=== PATIENT | female | born 1955 | race Caucasian/White ===

== ENCOUNTER → 2017-01-24 | Outpatient (CLI) | payer OTHER ==
[2017-01-24] VITALS (12 sets, daily range): BP systolic 142–181; BP diastolic 70–94; PULSE 59–72
[~2017-01-24] VITALS: Ht 170.2 cm; Wt 92.6 kg
[~2017-01-24] MED LIST: ASPIRIN 81M81 MG/TA2 PO; LOPRESSOR 550 MG/TAB PO; MOTRIN 400400 MG/TAB PO
[2017-01-24 09:59] LABS: INR 1.1 (0.8-3.0); PROTHROMBIN TIME 11.9 SECONDS (9.7-12.8)
== END ==
LOC: COL.RAD 09:00
PROVIDERS: Physician Assistant
DX: K76.0 Fatty (change of) liver, not elsewhere classified (principal); R74.8 Abnormal levels of other serum enzymes; Z90.49 Acquired absence of other specified parts of digestive tract
CPT/HCPCS: 25581

== ENCOUNTER 2017-01-26 14:55 | Emergency (ER) | payer OTHER ==
[~2017-01-26] VITALS: Ht 170.2 cm; Wt 91.8 kg
[2017-01-26 15:01] VITALS: BP 181/75; TEMP 98.2
[2017-01-26 15:40] LABS: BASO # 0.1 (0.0-0.2); BASO % 0.7 % (0.0-2.0); EOS # 0.1 (0.0-0.7); EOS % 1.4 % (0-4.0); GRAN # 6.8 (1.4-6.5); GRAN % 72.1 % (42.2-75.2); HEMATOCRIT 44.1 % (37.0-47.0); HEMOGLOBIN 14.6 g/dl (12.5-16.0); LYMPH # 1.8 (1.2-3.4); LYMPH % 18.6 % (20.0-51.0); MEAN CELL VOLUME 85 fl (80.0-100.0); MEAN CORPUSCULAR HEMOGLOBIN 28 pg (27.0-31.0); MEAN CORPUSCULAR HGB CONC 33 g/dl (33.0-37.0); MEAN PLATELET VOLUME 10.6 fl (7.4-10.4); MONO # 0.6 (0.1-0.6); MONO % 6.8 % (1.7-9.3); PLATELET COUNT 245 K/mm3 (130-400); RED BLOOD COUNT 5.19 M/mm3 (4.10-5.30); REDCELL DISTRIBUTION WIDTH-CV 13.4 % (11.5-14.5); WHITE BLOOD COUNT 9.4 K/mm3 (4.8-10.8)
[2017-01-26 15:56] LABS: ADJUSTED CALCIUM 9.2 mg/dL (8.4-10.2); ALBUMIN 4.3 gm/dL (3.5-5.0); BILIRUBIN,TOTAL 1.1 mg/dL (0.0-1.0); CALCIUM 9.4 mg/dL (8.4-10.2); CREATININE, serum 0.78 mg/dL (0.52-1.25); POTASSIUM 4.3 mmol/L (3.4-5.0)
[2017-01-26 16:42] VITALS: PULSE 86
== END 2017-01-26 16:43 | disposition home or self-care (01) ==
LOC: COL.ER 14:55
PROVIDERS: Family Medicine
DX: K91.870 Postprocedural hematoma of a digestive system organ or structure following a digestive system procedure (principal); I10 Essential (primary) hypertension
CPT/HCPCS: J7030

== ENCOUNTER 2023-07-19 07:46 | Inpatient (IN) | payer MEDICARE ==
[~2023-07-19] VITALS: Ht 170.2 cm; Wt 85.9 kg
[~2023-07-19 07:46] MED LIST changes: +CLARITIN 1010 MG/TAB PO; +COZAAR100 MG PO; +FARXIGA10 PO; +GLUCOPHAGE XR500 M1 PO; +GLUCOTROL XL10 MG PO; +HAIRSKINNAILS PO; +MICROZIDE12.5 MG PO; +ZEBETA10 MG PO
[2023-07-19] MEDS ORDERED: FLAGYL500 MG PO (08:05)
[2023-07-19] MEDS ORDERED: BIAXIN 500MG T500 MG PO (08:05)
[2023-07-19] MEDS ORDERED: FERROUS SU325 MG/TAB PO (08:06)
[2023-07-19] MEDS ORDERED: COZAAR 50MG50 MG/TAB PO (08:06)
[2023-07-19] MEDS ORDERED: NEURONTIN100 MG/CAP PO (08:07)
[2023-07-19] MEDS ORDERED: PEPTO BISM262 MG/15 PO (08:07)
[2023-07-19] MEDS ORDERED: PROTONIX 40MG T40 MG PO (08:08)
[2023-07-19] MEDS ORDERED: CARAFATE 1GM1 G PO (08:08)
[2023-07-19] MEDS ORDERED: BLUE-EMU LIDOC1 EACH TP (08:09)
[2023-07-19] MEDS ORDERED: PACERONE200 MG PO (08:17)
[2023-07-19] MEDS ORDERED: SPIRIVA RE2.5 MCG/Ac IH (08:41)
[2023-07-19] MEDS ORDERED: RT ADVAIR 228 DISKUS IH (08:43)
[2023-07-19] MEDS ORDERED: IPRATROPIUM BROM3 M1 IH (08:43)
[2023-07-19 11:45] VITALS: BP 129/51; PULSE 90; TEMP 98.2
--- NOTE | 2023-07-19 12:29 | NUR ---
New pt arrived to IPR unit via wheelchair from Surgical Floor. She is a/o x 4, pleasant. Denies pain or discomfort. Pt is s/p lap colectomy on 06/13 & s/p sigmoid resection on 06/29. Colostomy noted to RLQ & is CDI. Midline abd. incision noted to be covered by abd. pad & is also CDI. Dressing not removed at this time. Loop recorder placed on 07/14. Gauze dressing removed to reveal steri strips that are CDI - steri strips left in place per cardiology's instruction. All other skin is intact. Pt denies any valuables that need to be locked at this time. Pt has her cellphone at the bedside. OT in room for eval/shower. Orientation provided to room/unit. Pt denies other needs.
[2023-07-19 13:00] VITALS: BP_SYST 129
--- NOTE | 2023-07-19 13:05 | NUR ---
Pt resting supine in bed after showering w/ OT. PT at the bedside for eval.
[2023-07-19 17:07] VITALS: BP 119/66; PULSE 85; TEMP 98.3
[2023-07-19 17:38] VITALS: BP 119/66; PULSE 85; TEMP 98.3
[2023-07-19 17:47] VITALS: BP_SYST 119
--- NOTE | 2023-07-19 19:30 | NUR ---
RECEIVED CHANGE OF SHIFT REPORT FROM DAY SHIFT RN. PATIENT RESTING IN BED DURING REPORT, WATCHING TV. DENIES ANY NEEDS OR CONCERNS AT TIME OF REPORT. EXIT ALARM ON, CALL LIGHT IN REACH.
[2023-07-20 04:50] VITALS: BP 158/43; PULSE 80; TEMP 98.1
--- NOTE | 2023-07-20 05:00 | NUR ---
Patient reports did not sleep well during the night. Reports that she is concerned about the wellfare of one of her daughters, that she was informed, via phone call, that her daughter was in the ER at the hospital in [place] "that's where her shelter is at" from her coworkers daughter and that she would get a call back "but I didn't hear from anyone". Patient refused offer of speaking with roofer assistant for spiritual support at this time. C/O headache and BLE discomfort 7/10 level, see [facility] for BP reading taken and PRN med given.
[2023-07-20 07:00] VITALS: BP_SYST 158
--- NOTE | 2023-07-20 07:22 | NUR ---
CHANGE OF SHIFT REPORT GIVEN TO DAY SHIFT DANI. BOO
--- NOTE | 2023-07-20 08:50 | NUR ---
PT TAKEN DOWN TO THERAPY GYM BY OT.
--- NOTE | 2023-07-20 10:30 | NUR ---
PT DOWN TO THERAPY GYM
--- NOTE | 2023-07-20 16:19 | NUR ---
Collar Setter and SW Student met with Patient at bedside to conduct Care Managment Assessment and discuss discharge planning. Patient lives in [place], [place] and is established with Joann Soto for PCP. Patient reports 1 step to enter home. Patient states that there is no room in her bathroom for grab bars. Patient stats that she may need to rearrange her home to assist with ambulating in the home with a walker if needed. Patient reports to have reliable transportation when discharged. Patient states that she has strong familial supports at home and in the community.
[2023-07-20 17:15] VITALS: BP 150/63; PULSE 88; TEMP 99
[2023-07-20 19:00] VITALS: BP_SYST 150
--- NOTE | 2023-07-20 19:20 | NUR ---
REPORT RECIEVED FROM YURI HADDAD. PT RESTING IN BED WATCHING TV. PT DENIES PAIN OR DISCOMFORT. CALL LIGHT IN PLACE. ALL NEEDS MET AT THIS TIME.
--- NOTE | 2023-07-20 20:12 | NUR ---
SHIFT ASSESSMENT COMPLETE, SEE DOCUMENTATION. PT AMBULATED TO BATHROOM UTILIZING GAIT BELT AND WALKER, GAIT STEADY. NO C/O PAIN. PT REPORTS BEING VERY TIRED. CALL LIGHT IN PLACE. ALL NEEDS MET AT THIS TIME.
[2023-07-21 04:59] VITALS: BP 129/65; PULSE 80; TEMP 98.3
[2023-07-21 07:00] VITALS: BP_SYST 129
--- NOTE | 2023-07-21 11:23 | NUR ---
Has lack of transportation kept you from medical appts, meetings, work, or from getting things needed for daily living? NO How often do you feel lonely or isolated from those around you? OFTEN Over the past 5 days, how much of the time has pain made it hard for you to sleep? FREQUENTLY Over the past 5 days, how often have you limited your participation in therapy due to pain? RARELY/NOT AT ALL Over the past 5 days, how often have you limited your day-to-day activities because of pain? RARELY/NOT AT ALL Have you had 2 or more falls in the past year or any fall with an injury? NO Did you have major surgery during the 100 days prior to admission? YES
--- NOTE | 2023-07-21 13:55 | NUR ---
PATINET WITH THERAPY
--- NOTE | 2023-07-21 15:43 | NUR ---
Farm Management Supervisor and SW student met with Patient to review progress towards treatment goals and review potential discharge services. Patient reports to be making progress towards treatment goals despite feeling fatigue after therapies. SW reviewed potential Home Health PT or OPPT when discharged. Patient presents with no concerns at this time.
[2023-07-21 17:28] VITALS: BP 103/50; PULSE 85; TEMP 98.6
[2023-07-21 19:11] VITALS: BP_SYST 103
--- NOTE | 2023-07-21 22:26 | NUR ---
PATIENT DECLINED ALL NIGHT MEDS DUE TO NAUSEA.PATIENT STATES SHE WILL TRY TO TAKE THEM LATER ON TONIGHT. UNDERSTOOD
--- NOTE | 2023-07-21 22:48 | NUR ---
SHIFT ASSESSMENT COMPLETE. VSS. A&OX4. PATIENT HAS BEEN FEELING NEUSEA SINCE MEDS GIVEN @ 1700 TODAY. PATIENT DECLINED NIGHTTIME MEDS AT THIS TIME BUT WILL TRY TO TAKE THEM A LITTLE. UNDERSTOOD. CONOSCOPY INTACT AND OUTPUT BROWN THICK LIQUID. INCISION SITE TO ABD DRESSING CHANGED @ 1630 TODAY HAD SOME YELLOW DRAINAGE. SITE CLEAN AND NEW DRESSING APPLIED CDI. PATIENT IS RESTING IN BED WATCHING TV. FALL PRECAUTIONS IN PLACE AND CALL LIGHT IN REACH.
[2023-07-22 06:33] VITALS: BP 125/56; PULSE 72; TEMP 99.1
[2023-07-22 07:00] VITALS: BP_SYST 125
--- NOTE | 2023-07-22 11:46 | NUR ---
PT ALERT AND ORIENTED. COMFORABLE IN BED W/O COMPLAINTS OF PAIN. VITAL SIGNS STABLE. NO INSULIN REQUIRED. MEDS ADMINISTERED PER EMAR. PICC FLUSHING WELL W/BLOOD RETURN. HEAD TO TOE ASSESSMENT COMPLETE. CALL LIGHT WITHIN REACH.
[2023-07-22 17:15] VITALS: BP 140/42; PULSE 80; TEMP 99.1
--- NOTE | 2023-07-22 18:08 | NUR ---
Pt having frequent coughing after attempting to take her evening medications. Pt reports that she feels like she can still taste the pill while coughing & reports foreign body sensation in her throat. Pt is able to swallow liquids, crackers, pudding w/o difficulty. Attempted to notify hospitalist, no answer. Will try to contact oncoming night hospitalist.
--- NOTE | 2023-07-22 18:18 | NUR ---
Hospitalist notified of pt's frequent coughing w/ report of foreign body sensation in her throat. Hospitalist will come to see pt for eval.
--- NOTE | 2023-07-22 18:37 | NUR ---
HOSPITALIST HERE TO ASSESS PT. NPO NOW.
--- NOTE | 2023-07-22 21:47 | NUR ---
Patient assessed at this time, see shift assessment, still coughing at times, NPO maintained as ordered, IV fluid started, with PICC to right upper arm infusing well, both lumens flushes well with good blood return, dressing to abdomen is CDI but patient requested to have it change despite dayshift nurse already change it, applied wet to dry dressing using gauze, ABD and hypafix, denies further needs, call light and personal items within reach, will continue to monitor.
--- NOTE | 2023-07-23 04:25 | NUR ---
Patient coughing at this time, reports she can still taste the pill that she took last night, offered mouth swabs at this time to moisten her mouth and she's agreeable with it. NPO maintained, will continue to monitor. Toileting offered and she states she doesn't need to go at this time.
[2023-07-23 05:58] VITALS: BP 123/43; PULSE 66; TEMP 97.9
--- NOTE | 2023-07-23 07:05 | NUR ---
LEAD HOUSEKEEPER NURSE REPORTS PT HAS NEW ORDERS. PT NPO AND ON FLUIDS. DID WELL OVERNIGHT. NIGHT NURSE ALSO EXPRESSED PT NOT READY TO LEARN HOW TO CARE FOR HER COLOSTOMY.
[2023-07-23 07:07] VITALS: BP_SYST 123
--- NOTE | 2023-07-23 11:48 | NUR ---
Around 10 am I notified hospitalist abt pt request to attempt to drink liquids and resume eating. Verbal order recieved to do a bedside swallow attempt and if pt was able to tolerate, ok to d/c fluids and resume dietas ordered. Bedside swallow initiated with 2nd RN, water and crackers were given to pt, pt was able to chew and swallow ok. Fluids D/C and Low fiber diet resumed.
[2023-07-23 18:00] VITALS: BP 123/57; PULSE 80; TEMP 98.3
--- NOTE | 2023-07-23 19:01 | NUR ---
RECEIVED CHANGE OF SHIFT REPORT FROM DAY SHIFT RN.
--- NOTE | 2023-07-23 20:23 | NUR ---
C/O OF NAUSEA AND ACID REFLUX, SEE MAR FOR ZOFRAN GIVEN. PATIENT BACK IN BED FROM CHAIR. DENIES ANY OTHER NEEDS AT THIS TIME.
[2023-07-24 05:10] VITALS: BP 138/47; PULSE 76; TEMP 98.2
--- NOTE | 2023-07-24 05:32 | NUR ---
REPORTS SLEPT BETTER LAST NIGHT COMPARED TO OTHER NIGHTS, DENIES ANY NAUSEA/INDIGESTION/ABD PAIN AT THIS TIME. EXIT ALARM ON WHILE RESTING IN BED, CALL LIGHT IN REACH.
--- NOTE | 2023-07-24 06:45 | NUR ---
CHANGE OF SHIFT REPORT GIVEN TO DAY SHIFT RNNATASHA.
[2023-07-24 07:00] VITALS: BP_SYST 138
--- NOTE | 2023-07-24 09:38 | NUR ---
PT OUT FOR THEAPY AFTER BREAKFAST. PT REPORTS THAT BIAXIN UPSETS STOMACH, INFORMED DR. ESTRADA AND HE WILL FIND A POSSIBLE ALTERNATIVE. PT EATING AND DRINKING. TOOK MEDS CRUSHED WITH PUDDING. PT MANAGES COLOSTOMY.
--- NOTE | 2023-07-24 12:54 | NUR ---
Admission QIM scores were reviewed by the team. Code of 88 chosen for toileting hygiene was determined by team discussion to be the most usual performance for this patient during the discharge assessment period. Code of 88 chosen for shower/bathe self was determined by team discussion to be the most usual performance before interventions for this patient during the assessment period. Code of 5 chosen for upper body dressing was determined by team discussion to be the most usual performance before interventions for this patient during the assessment period. Code of 88 chosen for lower body dressing was determined by team discussion to be the most usual performance before interventions for this patient during the assessment period. Code of 4 chosen for sit to lying was determined by team discussion to be the most usual performance before interventions for this patient during the assessment period. Code of 4 chosen for lying to sitting side of bed was determined by team discussion to be the most usual performance before interventions for this patient during the assessment period. Code of 3 chosen for sit to stand was determined by team discussion to be the most usual performance for this patient during the discharge assessment period. Code of 3 chosen for chair/bed to chair transfer was determined by team discussion to be the most usual performance before interventions for this patient during the assessment period. Code of 3 chosen for walking 10 feet was determined by team discussion to be the most usual performance for this patient during the discharge assessment period. Code of 3 chosen for walking 50 feet w/ 2 turns was determined by team discussion to be the most usual performance before interventions for this patient during the discharge assessment period. Code of 88 chosen for walking 150 feet was determined by team discussion to be the most usual performance before interventions for this patient during the assessment period.--Malinda Balderas,
--- NOTE | 2023-07-24 14:45 | NUR ---
DRESSING CHANGE COMPLETED ORDERED. PT TOLERATED WELL.
--- NOTE | 2023-07-24 15:58 | NUR ---
Night Guard met with patient to check in from weekend. Patient stated she aspirated over the weekend and that it was pretty scary, however she is feeling better. Patient denied any other questions or concerns at this time.
[2023-07-24 17:53] VITALS: BP 143/51; PULSE 75; TEMP 98.5
--- NOTE | 2023-07-24 19:03 | NUR ---
RECEIVED CHANGE OF SHIFT REPORT FROM DAY SHIFT RN.
[2023-07-25 05:02] VITALS: BP 138/49; PULSE 72; TEMP 97.7
--- NOTE | 2023-07-25 07:05 | NUR ---
CHANGE OF SHIFT REPORT GIVEN TO DAY SHIFT RNGE. PATIENT C/O OF ZOHREH LEG PAIN, REFUSES OFFER OF TYLENOL STATING SHE DOES NOT WANT TO SWALLOW ANYMORE CRUSHED PILLS. PATIENT DID AGREE TO TAKE TYLENOL IF IN LIQUID FORM. EXIT ALARM ON WITH CALL LIGHT IN REACH WHILE RESTING IN BED WATCHING TV THIS MORNING.
[2023-07-25 07:33] VITALS: BP_SYST 138
--- NOTE | 2023-07-25 08:20 | NUR ---
pt sitting in recliner finishing breakfast. meds given and assessment complete. lidocaine patch applied to right lower back. midline abdominal incision is cdi. loop recorder incision intact. PICC to mable flushes well w good blood return. pt expressing some doubtful feelings this morning, spoke to patient and is now in better spirits. pt denies needs at this time. call light in reach.
[2023-07-25 17:30] VITALS: BP 165/56; PULSE 88; TEMP 98.3
--- NOTE | 2023-07-25 19:00 | NUR ---
RECEIVED CHANGE OF SHIFT REPORT FROM DAY SHIFT RN. PATIENT UP IN CHAIR DURING REPORT, DENIES ANY NEEDS. EXIT ALARM ON WITH CALL LIGHT IN REACH.
[2023-07-26 05:01] VITALS: BP 154/55; PULSE 86; TEMP 98.2
--- NOTE | 2023-07-26 07:14 | NUR ---
CHANGE OF SHIFT REPORT GIVEN TO DAY SHIFT RNs, YENNY.
--- NOTE | 2023-07-26 07:39 | NUR ---
PER TILE FITTER REPORT PT NOW ON LIQUID TYLENOL R/T NOT LIKING THE TASTE OF WHOLE CRUSHED TYLENOL.
[2023-07-26 07:40] VITALS: BP_SYST 154
--- NOTE | 2023-07-26 09:21 | NUR ---
Midline abd. incision dressing changed per order. Colostomy bag changed per pt's request. OT at the bedside to shower pt. Other needs denied.
--- NOTE | 2023-07-26 13:17 | NUR ---
PATIENT ALERT AND ORIENTED. VITAL SIGNS STABLE. SITTING IN THE BED. PT HAS BILATERAL EDEMA WORSE ON THE LEFT LOWER EXT. HOSPITALIST AWARE. WILL KEEP MONITORING. PT IS ACCEPTING OF USING THE SCDS TOLERABLE. HEAD TO TOE ASSESSMENT COMPLETE. PT IS NOW TAKING PILLS WHOLE. LARGE ONES SPLIT IN HALF IN PUDDING AND SMALL ONES IN PUDDING. BED ALARM SET. CALL LIGHT WITHIN REACH.
--- NOTE | 2023-07-26 17:11 | NUR ---
machine worker met with IPR team to discuss patient's progress and potential discharge. Patient may be ready for discharge on 08/02/23 with either home health or outpatient PT. PT is recommending a walker. machine worker met with patient to discuss the IPR team meeting notes. Patient expressed she can obtain a walker easily and would like to utilize outpatient PT through the [facility]. machine worker provided a copy of the notes. machine worker discussed setting up a family meeting, patient would like Myrtle P# [phone] and Satish P# [phone] to be involved. machine worker will contact them to schedule family meeting prior to discharge. Discharge plan: Home with Outpatient PT
[2023-07-26 18:05] VITALS: BP 162/53; PULSE 85; TEMP 98.7
[2023-07-26 19:00] VITALS: BP_SYST 162
--- NOTE | 2023-07-26 20:16 | NUR ---
PATIENT REFUSES BREATHING TREATMENTS
--- NOTE | 2023-07-27 03:55 | NUR ---
UPON SHIFT ASSESSMENT NANDO WAS UP IN BED WATCHING TV. HER SURGICAL INSCISION SITE LOOKED CLEAND AND DRY. COLOSTOMY STOMA WAS BRIGHT RED AND DRAINING APPROPRIATELY. STOOL WITHIN COLOSTOMY BAG WAS BROWN AND WATERY WITH NO INDICATION OF GI COMPLICATIONS. HER VSS ARE WNL, HOWEVER, HER PURPLE LUMEN ON HER PICC LINE WOULD NOT FLUSH, RED LINE FLUSHED WITH NO ISSUES. CALL LIGHT WITHIN REACH, BED ALARM ON.
[2023-07-27 05:06] VITALS: BP 138/55; PULSE 73; TEMP 97.6
--- NOTE | 2023-07-27 06:53 | NUR ---
UPON SHIFT CHANGE NANDO WAS UP IN BED AND HER BILATERAL LOWER EXTREMITY EDEMA HAS SEEM TO RESOLVE FOR THE TIME BEING. SHE DID MENTION THAT SHE NOTICED A FEW UNDIGESTED PILLS IN HER COLOSTOMY BAG. HER ABDOMINAL INSCISION STILL REMAINS DRY AND NON EDEMANOUS. HER VSS ARE CURRENTLY WNL, CALL LIGHT IS WITHIN REACH.
[2023-07-27 07:00] VITALS: BP_SYST 138
--- NOTE | 2023-07-27 08:53 | NUR ---
SBA provided as pt stood from recliner to ambulate to the bathroom. Pt independently performed colostomy care after supplies were gathered for the pt. Per warehouse supervisor 3rd shift report, purple port on dbl lumen PICC line was difficult to flush. Red & purple ports both flushed easily w/ noted blood return from each port. Pt denies pain/discomfort. Denies other needs. Pt supervised as she swallowed her a.m. medications. Larger pills were cut in 1/2. No episodes of choking/coughing noted while she was taking her medications. Pt has her call light in reach. Chair alarm is on.
--- NOTE | 2023-07-27 10:50 | NUR ---
PT ALERT AND ORIENTED. VITAL SIGNS STABLE. HEAD TO TOE ASSSESSMENT COMPLETE. ASSISTED UP TO RESTROOM STANDBY ASSIST WITH FWW. PT EMPTIED HER OWN COLOSTOMY BAG THE LAST FEW DAYS. NO PAIN EXPRESSED NO C/O NAUSEA.
--- NOTE | 2023-07-27 14:55 | NUR ---
Data Management Associate faxed referral to [facility], then left a message for the therapy department. SW will follow up to schedule outpatient PT.
--- NOTE | 2023-07-27 15:18 | NUR ---
sheet metal worker contacted patient's family, Myrtle Meadows# [phone] and Satish P# [phone] to schedule family meeting on Monday. Patient's family chose 1 pm on Monday and both family members will be in person. sheet metal worker notified Malinda Balderas, Inpatient Presser Hand, of the appointment time and date. Discharge Plan: Home with Outpatient PT
[2023-07-27 18:00] VITALS: BP 150/57; PULSE 79; TEMP 98.8
[2023-07-27 18:30] VITALS: BP_SYST 150
--- NOTE | 2023-07-27 20:00 | NUR ---
PT SITTING UP IN RECLINER. SBA WITH WALKER TO BR. VOIDING WITHOUT DIFFICULTY. PT EMPTIES COLOSTOMY PER SELF. HAD MED THICK BROWN STOOL NOTED. ALSO NOTED WAS UNDIGESTED IRON PILL IN STOOL. PT AMB TO BED. ABLE TO LIFT LEGS INTO BED PER SELF. CALL LIGHT IN REACH. BED ALARM SET. NO NEEDS AT THIS TIME.
--- NOTE | 2023-07-28 04:56 | NUR ---
SBA WITH WALKER TO BR. VOIDED. PT EMPTIED OUT COLOSTOMY POUCH AND FOUND X 2 MORE UNDIGESTED PILLS.
[2023-07-28 05:28] LABS: BASO % 0.9 % (0.0-2.0); EOS # 0.2 K/mm3 (0.0-0.7); EOS % 7.8 % (0.0-4.0); GRAN # 1.1 K/mm3 (1.4-6.5); GRAN % 48.9 % (42.2-75.2); LYMPH # 0.8 K/mm3 (1.2-3.4); LYMPH % 32.5 % (20.0-51.0); MEAN CELL VOLUME 92 fl (80.0-100.0); MEAN CORPUSCULAR HGB CONC 32 g/dl (33.0-37.0); MEAN PLATELET VOLUME 10.9 fl (7.4-10.4); MONO # 0.2 K/mm3 (0.1-0.6); MONO % 9.5 % (1.7-9.3); PLATELET COUNT 142 K/mm3 (130-400); RED BLOOD COUNT 2.69 M/mm3 (4.10-5.30)
[2023-07-28 05:29] LABS: HEMATOCRIT 24.7 % (37.0-47.0); HEMOGLOBIN 7.9 g/dl (12.5-16.0); MEAN CORPUSCULAR HEMOGLOBIN 29 pg (27-31)
[2023-07-28 05:34] LABS: CALCIUM 8.4 mg/dL (8.4-10.2); CREATININE, serum 0.77 mg/dL (0.57-1.11); POTASSIUM 3.5 mmol/L (3.5-4.5)
[2023-07-28 05:49] VITALS: BP 149/50; PULSE 79; TEMP 97.7
[2023-07-28 07:11] VITALS: BP_SYST 149
--- NOTE | 2023-07-28 09:20 | NUR ---
PT INDEPENDENT IN ROOM. EATING AND DRINKING NO N/V. PT DENIES PAIN. AM MEDS GIVEN ORDERED. IV FLAGYL PER ORDERS. PT TO THERAPY AT THIS TIME. DRESSINGS TO ABDOMEN CDI.
--- NOTE | 2023-07-28 14:54 | NUR ---
3Rd Mate scheduled PT appointment for patient on 08/08/23 at 0915. SW met with patient to check in. Patient stated therapy is going well and she is feeling tired. Patient requested assistance with Handicap Placard application as she feels she will need it temporarily. SW to have Rehab Physician sign it next week.
--- NOTE | 2023-07-28 16:01 | NUR ---
DRESSING CHANGE COMPLETE AFTER SHOWER TODAY. WET TO DRY AT DISTAL END OF SURGICAL MIDLINE WOUND. PT TOLERATED WELL.
[2023-07-28 17:03] VITALS: BP 163/53; PULSE 83; TEMP 98.4
[2023-07-28 21:00] VITALS: BP_SYST 162
--- NOTE | 2023-07-28 21:00 | NUR ---
PT WAS IN RECLINER. DAUGHTER VISITING. AMB IN IN HERRING WITH WALKER. STEADY GAIT. PT RELATED PT TOLD HER SHE COULD WALK TO COURT YARD WITH FAMILY. NO ORDER FOUND. PT NOT HAPPY. PT ABLE TO EMPTY COLOSTOMY BAG HERSELF. THICK BROWN STOOL AND FLATUS NOTED. PT TO BED. TOOK MEDS WHOLE WITH PUDDING. TOOK TYLENOL 650MG LIQ FOR GENERAL DISCOMFORT. FLAGYL STARTED PER PICC LINE RT UPPER ARM. RED PORT SL SLUGGISH. PURPLE FLUSHED WELL. CALL LIGHT IN REACH. BED ALARM SET.
[2023-07-29 04:49] VITALS: BP 171/62; PULSE 84; TEMP 99.2
[2023-07-29 07:04] VITALS: TEMP 98
[2023-07-29 07:50] VITALS: BP_SYST 171
--- NOTE | 2023-07-29 07:50 | NUR ---
PT UP IN CHAIR UPON ENTERING. PT DENIES PAIN BUT REPORTS GENERALIZED DISCOMFORT. MORNING MEDS GIVEN WITH PUDDING AND SWALLOWED WITHOUT DIFFICULTY, ANTIBIOTIC RUNNING PER ORDER. BOTH PURPLE AND RED PICC PORT FLUSH WELL WITH BLOOD RETURN. COLOSTOMY TO ABDOMEN AND DRESSING ACROSS LOWER ABDOMEN NOTED THAT IS CLEAN DRY AND INTACT. PT DENIES NEEDS AT THIS TIME. CALL LIGHT IN REACH.
--- NOTE | 2023-07-29 09:00 | NUR ---
PT AMBULATED TO BATHROOM WITH WALKER AND GAITBELT, GAIT STEADY. PT MANAGING OWN COLOSTOMY AND HAD A MEDIUM SOFT BOWEL MOVEMENT. PT TRANSFERRED TO BED AND DENIES NEEDS AT THIS TIME.
--- NOTE | 2023-07-29 12:18 | NUR ---
PT IN PHYSICAL THERAPY THIS AM AND BACK TO ROOM, IN BED UPON ENTERING. PT GIVEN MEDS IN PUDDING AND TRANSFERRED TO CHAIR FOR MEALS, GAIT STEADY WITH WALKER AND GAIT BELT. PT DENIES PAIN OR NEEDS AT THIS TIME. CHAIR ALARM ON AND CALL LIGHT IN REACH
--- NOTE | 2023-07-29 17:40 | NUR ---
PT AMBULATED TO CHAIR WITH WALKER AND GAIT BELT, CHAIR ALARM ON AND CALL LIGHT IN REACH. PREVIOUS LOWER ABDOMEN DRESSING REMOVED, NO DRAINAGE NOTED. QUARTER SIZED OPEN WOUND NOTED BENEATH UMBILICUS. WOUND PACKED WITH WET GAUZE, COVERED WITH ABDOMINAL PAD AND TAPED IN PLACE. PT DENIES NEEDS AT THIS TIME.
[2023-07-29 17:44] VITALS: BP 156/62; PULSE 85; TEMP 97.8
--- NOTE | 2023-07-29 18:45 | NUR ---
REPORT GIVEN TO NIGHT NURSE
[2023-07-29 18:49] VITALS: BP_SYST 156
--- NOTE | 2023-07-29 21:00 | NUR ---
PT RESITNG IN BED. PT ABLE TO GET UP TO BR WITH WALKER W/ SBA. TAKES CARE OF OWN COLOSTOMY. DENIES PAIN AT THIS TIME. ACCUCHECK 133. NO SSI. CALL LIGHT IN REACH. BED ALARM. REFUSES SCD'S.
[2023-07-30 06:02] VITALS: BP 144/55; PULSE 80; TEMP 98.4
--- NOTE | 2023-07-30 06:45 | NUR ---
shift report received from BOO Weeks
[2023-07-30 07:03] VITALS: BP_SYST 144
--- NOTE | 2023-07-30 07:40 | NUR ---
up in chair and has had breakfast, full assessment completed, see interventions for further info, denies needs at this time
--- NOTE | 2023-07-30 09:30 | NUR ---
back in bed and appears to be dozing,
--- NOTE | 2023-07-30 11:47 | NUR ---
resting in bed without c/os
--- NOTE | 2023-07-30 14:30 | NUR ---
daughter here, abdominal wound dressing changed, packed with wet gauze and covered by dry 4x4s and then airstrip, tolerated well
--- NOTE | 2023-07-30 17:44 | NUR ---
assisted up to chair for supper
[2023-07-30 17:49] VITALS: BP 171/55; PULSE 87; TEMP 98.4
[2023-07-30 19:00] VITALS: BP_SYST 171
--- NOTE | 2023-07-30 19:01 | NUR ---
shift report given to BOO Parker
--- NOTE | 2023-07-30 21:30 | NUR ---
PT IN BED, IS ALERT AND ORIENTED X4. HAS RT ABD COLOSTOMY WITH SOFT BROWN STOOL NOTED. LOWER ABD MIDLINE INCISION WITH DRY DRSG. VOIDING WITHOUT PROBLEM. ROSALBA PICC FLUSHED. HS MEDS GIVEN. NO CONCERNS OFFERED.
--- NOTE | 2023-07-31 08:30 | NUR ---
PT RESTING IN CHAIR RATING PAIN 0/10. PT UP TO BATHROOM, STEADY GAIT WITH WALKER. PT EMPTIED COLOSTOMY BAG WITH NO ISSUES. DRESSING TO LOWER ABDOMEN CHANGED AT THIS TIME. PICC LINE TO UPPER RIGHT ARM PATENT WITH BLOOD RETURN. PT ASSSITED TO SHOWER WITH THERAPY. NO NEEDS AT THIS TIME. WILL CONTINUE TO MONITOR.
--- NOTE | 2023-07-31 14:40 | NUR ---
floor service worker spring met with patient and IPR team for patient's family meeting. Patient will be ready for discharge Monday around 11 am. Patient will receive outpatient PT that is scheduled with [facility]. Patient is obtaining her own walker. Patient expressed she would like to update her pharmacy as [facility] in [place]. No further concerns or needs. Discharge Plan: Home with Outpatient PT
--- NOTE | 2023-07-31 15:25 | NUR ---
The Interdisciplinary team discussed making the patient Modified Independent in her room. Her current Greenberg Fall Score is moderate at 35 & Tinetti score was low at 25 & has been able to walk w/ a device in her room. She is currently using the walker for mobility & self care & demonstrates good safety. The team feels she is capable of being Modified Independent in her room at this time as she is aware of his deficits/limitations & cognitively able to problem solve her situations.--Malinda Balderas, PD
[2023-07-31 17:20] VITALS: BP 161/80; PULSE 83; TEMP 98.5
[2023-07-31 19:00] VITALS: BP_SYST 161
--- NOTE | 2023-07-31 20:30 | NUR ---
PT IN BED, IS ALERT AND ORIENTED X4. ACTIVITY HAS BEEN ADVANCED TO MOD I IN HER ROOM. GAIT STEADY WITH WALKER. COLOSTOMY WITH SOFT STOOL OUTPUT. DRSG TO DISTAL MIDLINE D/I. MILD EDEMA TO ANKLES. RT PICC FLUSHED WITH GOOD BLOOD RETURN. DENIES PAIN.
[2023-07-31 23:41] VITALS: BP 142/70
[2023-08-01 06:09] VITALS: BP 134/73; PULSE 701; TEMP 98.8
--- NOTE | 2023-08-01 06:10 | NUR ---
PT AWAKE, REPORTS RESTING WELL THIS SHIFT. SCHEDULED AM MED GIVEN.
--- NOTE | 2023-08-01 08:10 | NUR ---
PT RESTING IN BED WITH PAIN 1/10 BODY ACHES. COLOSTOMY BAG CHANGED THIS AM, EDUCATION PROVIDED. WET TO DRY DRESSING TO LOWER ABDOMEN CHANGED AT THIS TIME. PT UP AROUND THE ROOM INDEPENDENT WITH STEADY GAIT. WILL CONTINUE TO MONITOR.
--- NOTE | 2023-08-01 16:55 | NUR ---
Has lack of transportation kept you from medical appts, meetings, work, or from getting things needed for daily living? NO How often do you feel lonely or isolated from those around you? RARELY Over the past 5 days, how much of the time has pain made it hard for you to sleep? RARELY OR NOT AT ALL Over the past 5 days, how often have you limited your participation in therapy due to pain? RARELY OR NOT AT ALL Over the past 5 days, how often have you limited your day-to-day activities because of pain? RARELY OR NOT AT ALL
[2023-08-01 17:44] VITALS: BP 150/60; PULSE 89; TEMP 98.1
[2023-08-01 19:00] VITALS: BP_SYST 150
--- NOTE | 2023-08-01 20:00 | NUR ---
Assessment complete. A&Ox4. Denies pain/nausea/shortness of breath. VS stable. Dressing to abdomen CDI. Up in room Mod I. Plan of care discussed for this shift to include meds/pain control/calling for questions/concerns. Call light in reach. Will monitor.
--- NOTE | 2023-08-02 02:49 | NUR ---
Patient resting eyes closed. No s/s of pain or discomfort noted.
[2023-08-02 04:57] VITALS: BP 146/51; PULSE 79; TEMP 98.2
--- NOTE | 2023-08-02 05:02 | NUR ---
Patient had an uneventful night. Rested well this shift. Up in room Mod I. Denied pain/nausea/shortness of breath. VS stable. Is excited to DC today. PICC line to right upper arm flushes without difficulty with good blood return. Denies current needs. Call light in reach. Will monitor.
[2023-08-02 07:10] VITALS: BP_SYST 146
--- NOTE | 2023-08-02 07:11 | NUR ---
Shift report received from maintenance technician 2nd shift RN. Pt is scheduled for home DC today. No events reported overnight. Pt sleeping supine in bed w/ even & unlabored resps. Pt has her call light in reach. Bed alarm is on.
[2023-08-02] MEDS ORDERED: LIPITOR 40MG TA40 MG PO ×3 (09:51→13:24)
--- NOTE | 2023-08-02 10:33 | NUR ---
PICC line removed by AIVS per order. Pt resting supine in bed. PICC dressing CDI. is at the bedside for discharge.
--- NOTE | 2023-08-02 11:39 | NUR ---
DC summary reviewed w/ the pt & her . They had no further questions. Pt requesting an rx for protonix & carafate be sent to [facility] - hospitalist aware. Belongings were gathered by the spouse. Pt ambulated off unit w/ FWW by CARBONATOR & spouse.
[2023-08-02] MEDS ORDERED: PROTONIX 40MG T40 MG PO (13:24)
[2023-08-02] MEDS ORDERED: CARAFATE 1GM1 G PO (13:24)
--- NOTE | 2023-08-02 17:18 | NUR ---
mining support worker met with Dr Mann for finalizing handicap placard application for patient. Dr Mann signed for a temporary placard. mining support worker provided application to patient and notified her to sign and provide the information to the DMV when she was able to. Patient did not have any concerns and was ready to return home today. Discharge Plan: Home with Outpatient PT
--- NOTE | 2023-08-03 12:36 | NUR ---
Discharge QIM scores were reviewed by the team. Code of 6 chosen for eating was determined by team discussion to be the most usual performance for this patient during the discharge assessment period.--Malinda Balderas, PD
[2023-08-03] MEDS ORDERED: NEURONTIN100 MG/CAP PO ×2 (16:52→17:01)
[2023-08-03] MEDS ORDERED: CORDARONE200 MG/TAB PO ×2 (16:57→17:01)
== END 2023-08-02 11:38 | disposition home or self-care (01) | DRG 92 ==
PROVIDERS: ADMIT Physical Medicine & Rehabilitation Sports Medicine
DX: G72.81 Critical illness myopathy (principal); N17.9 Acute kidney failure, unspecified; R26.89 Other abnormalities of gait and mobility; K75.81 Nonalcoholic steatohepatitis (NASH); I10 Essential (primary) hypertension; E78.5 Hyperlipidemia, unspecified; E11.42 Type 2 diabetes mellitus with diabetic polyneuropathy; B96.81 Helicobacter pylori [H. pylori] as the cause of diseases classified elsewhere; Z93.3 Colostomy status; R05.9 Cough, unspecified; I48.91 Unspecified atrial fibrillation; D64.89 Other specified anemias; M54.50 Low back pain, unspecified; Z88.5 Allergy status to narcotic agent; Z90.49 Acquired absence of other specified parts of digestive tract; Z79.899 Other long term (current) drug therapy; Z79.84 Long term (current) use of oral hypoglycemic drugs; Z85.038 Personal history of other malignant neoplasm of large intestine; Z79.82 Long term (current) use of aspirin; Z74.09 Other reduced mobility; Z91.041 Radiographic dye allergy status; Z95.818 Presence of other cardiac implants and grafts; Z87.891 Personal history of nicotine dependence; R11.2 Nausea with vomiting, unspecified
CPT/HCPCS: A9270; J1836; J2405; J7030; Q3014

== ENCOUNTER 2024-02-26 09:00 | Day surgery (SDC) | payer MEDICARE ==
[~2024-02-26] VITALS: Ht 170.2 cm; Wt 83.2 kg
[~2024-02-26 09:00] MED LIST changes: +BIAXIN 500MG T500 MG PO; +BLUE-EMU LIDOC1 EACH TP; +CARAFATE 1GM1 G PO; +CORDARONE200 MG/TAB PO; +COZAAR 50MG50 MG/TAB PO; +FERROUS SU325 MG/TAB PO; +FLAGYL500 MG PO; +IPRATROPIUM BROM3 M1 IH; +LIPITOR 40MG TA40 MG PO; +LR 1,000 ML IV SCH; +NEURONTIN100 MG/CAP PO; +NS 1,000 ML IV SCH; +Ondansetron 4 MG/2 ML VIAL IV PRN; +PACERONE200 MG PO; +PEPTO BISM262 MG/15 PO; +PROTONIX 40MG T40 MG PO; +RT ADVAIR 228 DISKUS IH; +SPIRIVA RE2.5 MCG/Ac IH
[2024-02-26] MEDS ORDERED: Glycopyrrolate 0.2 MG/ML 1 ML VIAL ONE (10:06)
[2024-02-26] MEDS ORDERED: Lidocaine PF 2% (20 MG/ML) 5 ML VIAL ONE (10:06)
[2024-02-26 10:10] VITALS: BP 163/68; PULSE 77; TEMP 97.9
[2024-02-26] MEDS ORDERED: HYDROCHLOROTH12.5 MG PO (10:19)
[2024-02-26] MEDS ORDERED: CLARITIN 1010 MG/TAB PO (10:20)
[2024-02-26] MEDS ORDERED: COZAAR100 MG PO (10:21)
[2024-02-26] MEDS ORDERED: MULTI VITAMINS1 TAB PO (10:22)
[2024-02-26] MEDS ORDERED: PEPTO BISMOL262 MG PO (10:22)
[2024-02-26] MEDS ORDERED: L-GLUTAMINE500 M5 PO (10:23)
[2024-02-26] MEDS ORDERED: TYLENOL 500MG500 MG PO (10:23)
[2024-02-26 10:30] VITALS: TEMP 98
[2024-02-26 10:40] VITALS: BP 146/63; PULSE 76
--- NOTE | 2024-02-26 10:40 | NUR ---
PATIENT RETURNS TO BAY [facility] PER CART. AROUSES TO VERBAL STIMULI. VSS. IVF INFUSING. SPOUSE IN ROOM. CALL LIGHT IN REACH. ALLOWED TO REST. SIDERAILS UP X2.
[2024-02-26 10:55] VITALS: BP 146/64; PULSE 75
--- NOTE | 2024-02-26 10:55 | NUR ---
MORE AWAKE AND TAKING WATER. SPOUSE IN ROOM.
[2024-02-26 11:10] VITALS: BP 150/63; PULSE 72
--- NOTE | 2024-02-26 11:10 | NUR ---
AWAKE AND TOLERATED WATER WELL. OFFERED SNACK AND STATES THEY ARE GOING TO GET LUNCH ON THE WAY HOME. DR. PERSAUD IN AND TALKS WITH PATIENT AND SPOUSE. ALL QUESTIONS ANSWERED.
--- NOTE | 2024-02-26 11:15 | NUR ---
IV DISCONTINUED AND SITE IS FREE OF REDNESS OR SWELLING. DRESSES SELF.
--- NOTE | 2024-02-26 11:20 | NUR ---
DISMISSAL INSTRUCTIONS GIVEN AND PATIENT VOICES UNDERSTANDING OF THESE.
--- NOTE | 2024-02-26 11:24 | NUR ---
PATIENT ASSISTED INTO WHEELCHAIR AND TAKEN BY THIS RN TO PRIVATE VEHICLE DRIVEN BY SPOUSE AND DISCHARGED TO HOME WITH INSTRUCTIONS IN HAND.
== END 2024-02-26 11:24 | disposition home or self-care (01) ==
LOC: SDCO 09:00
DX: K29.50 Unspecified chronic gastritis without bleeding (principal); Z85.038 Personal history of other malignant neoplasm of large intestine; Z86.19 Personal history of other infectious and parasitic diseases; Z90.49 Acquired absence of other specified parts of digestive tract; Z90.89 Acquired absence of other organs; Z90.710 Acquired absence of both cervix and uterus
CPT/HCPCS: J2704; J7120